=== PATIENT | female | born 1995 | race Caucasian/White ===

== ENCOUNTER → 2021-08-26 14:13 | Outpatient (CLI) | payer OTHER, SELFPAY ==
--- NOTE | 2021-08-26 14:15 | DI.US.S_ITS ---
PROCEDURE: US OB >= 14 WEEKS FETUS INDICATIONS: 7 cm cyst on uterus f/u and anatomy screen OUTSIDE/PRIOR DATING DATA: Last menstrual period (LMP): 04/08/2021 LMP-based estimated date of delivery (DANNIE): 01/13/2022. First dating scan (date and location): 07/19/2021. Estimated date of delivery (DANNIE) from first dating scan: 01/07/2032. The calculations are made using the ultrasound DANNIE of 01/07/2032. TECHNIQUE: Real-time scanning was performed of the fetus, with image documentation and biometric measurements. Endovaginal scanning: No COMPARISON: [facility], US, US OB GROWTH + TRANSVAG, 07/19/2021, 10:50. FINDINGS: General: A single living intrauterine gestation is present. Presentation: Variable. Placenta: Placental position is anterior left lateral , without previa. Amniotic fluid index: 15.4 cm, normal range is 5-24 cm. heart rate: 144 beats per minute. Maternal cervical canal: 5.5 cm long. Normal lower limit is 2.5 cm. Report any funneling of internal cervical os: % of canal length, shape (U or V), width or any U-shaped funneling. biometrics: Biparietal diameter: 21 weeks 2 days Head circumference: 21 weeks 0 days Abdominal circumference: 21 weeks 0 days Femur length: 21 weeks 6 days Clinically estimated gestational age: 21 weeks 0 days Composite gestational age from present scan: 21 weeks 2 days Estimated weight and percentile: 416 g; 63rd percentile. Anatomic survey: Neuro: Ventricles are non-dilated at less than 10 mm. Cisterna magna is normal at 3-11 mm. Cerebellum is normal in size and morphology. Nuchal skin fold: Normal at less than 6 mm between 14-21 weeks gestational age. Face: Nose and lips, facial profile are normal. Spine: No evidence for spina bifida. Heart: 4-chambered heart is present, with normal ventricular outflow tracts. Diaphragm: Diaphragm is intact. Stomach: Left-sided stomach is present. Kidneys: No hydronephrosis. Normal is less than 5 mm in 2nd trimester, less than 7 mm in 3rd trimester. Cord: 3-vessel cord has orthotopic insertion. Placental cord insertion site not well seen. Bladder: Normal in size. Extremities: All 4 extremities identified. Maternal left complex ovarian cyst containing fine low level internal echoes appears similar to prior examination measuring up to 7.1 cm. IMPRESSION: 1. Single living IUP redemonstrated and interval growth is normal. 2. Placental cord insertion site not well seen; otherwise normal anatomic survey. 3. No significant change in maternal complex left ovarian cyst which has appearance suggesting possible endometrioma measuring up to 7.1 cm. Continued sonographic surveillance is warranted. Of note, given the size, patient is at increased risk for spontaneous torsion. We strive to produce accurate, complete, and clear reports of imaging services. To assist us in improving patient care, this report was composed using standard report templates and voice recognition software. Therefore, it may contain abnormal punctuation, insertions and/or omissions. Occasional wrong-word or sound-alike substitutions may occur. Though we review the report and make efforts to correct it, we do recommend that the report be read carefully in proper context to recognize any text inaccuracies. Dictated by: Remigio DASH Interpreted: Zaki Sanchez MD on 08/26/2021 at 15:58 Transcribed by: CHERELLE on 08/26/2021 at 16:03 Approved by: Zaki Sanchez M.D. on 08/26/2021 at 16:43
== END ==
PROVIDERS: PCP Family Medicine; Referring Provider Family Medicine; Visit Provider Family Medicine
DX: Z36.2 Encounter for other antenatal screening follow-up (principal); O34.82 Maternal care for other abnormalities of pelvic organs, second trimester; N83.292 Other ovarian cyst, left side; Z3A.21 21 weeks gestation of pregnancy
CPT/HCPCS: 76811

== ENCOUNTER → 2021-10-11 11:39 | Outpatient (CLI) | payer OTHER, SELFPAY ==
[2021-10-11 14:09] LABS: Hematocrit 29.2 % (36-46); Hemoglobin 9.8 g/dL (12.0-16.0)
[2021-10-11 14:32] LABS: GTT (PREG) 1 Hour PP 50gm Dose 108 mg/dL (76-139)
== END ==
PROVIDERS: PCP Family Medicine; Referring Provider Family Medicine; Visit Provider Family Medicine
DX: Z34.92 Encounter for supervision of normal pregnancy, unspecified, second trimester (principal); Z3A.26 26 weeks gestation of pregnancy
CPT/HCPCS: 36415; 82950; 85014; 85018

== ENCOUNTER → 2021-12-17 15:03 | Outpatient (CLI) | payer OTHER, SELFPAY ==
[2021-12-18 13:45] LABS: Strep Grp B PCR NEG for Grp B Strep
== END ==
PROVIDERS: PCP Family Medicine; Visit Provider Obstetrics & Gynecology
DX: Z34.03 Encounter for supervision of normal first pregnancy, third trimester (principal); Z3A.36 36 weeks gestation of pregnancy
CPT/HCPCS: 87653

== ENCOUNTER 2022-01-12 19:02 | Inpatient (IN) | payer OTHER, SELFPAY ==
[2022-01-12 20:16] LABS: Add Manual Diff / Slide Review NO; Basophils Absolute Auto 0 /uL (0-100); Basophils Percent Auto 0.5 % (0-2); Eosinophils Absolute Auto 100 /uL (0-450); Eosinophils Percent Auto 0.9 % (2-4); Hematocrit 31.2 % (36-46); Hemoglobin 10.6 g/dL (12.0-16.0); Lymphocytes Absolute Auto 1600 /uL (1100-4500); Lymphocytes Percent Auto 18.9 % (25-40); Mean Corpuscular HGB Conc 34.1 % (30-36); Mean Corpuscular Hemoglobin 31.1 PG (26-34); Monocytes Absolute Auto 900 /uL (0-900); Monocytes Percent Auto 10.5 % (3-14); Neutrophils Absolute Auto 5800 /uL (1500-7000); Neutrophils Percent Auto 69.2 % (50-75); Platelet Count 230 X10^3/uL (150-400); Red Blood Cell Count 3.43 X10^6/uL (4.0-5.2); Red Cell Distribution Width 16.4 % (11.6-14.8); White Blood Cell Count 8.3 X10^3/uL (4.5-11.0)
[2022-01-12] MEDS: DINOPROSTONE VAG (CERVIDIL) 10 MG VAG (20:20)
[2022-01-12 20:52] LABS: COVID19 -Nasal RAPID Negative (Negative)
[2022-01-12] MEDS: CALCIUM CARBONATE 500 MG TAB 1000 MG PO (21:59)
--- NOTE | 2022-01-13 08:10 | PM.OBHP.IH.1 ---
OB HPI Date/Time Date of admission: 01/13/22 Date Patient Seen: 01/13/22 Time Patient Seen: 08:10 History of Present Condition Chief complaint: Induction DANNIE Calculator Estimated Delivery Date Method Current WG Current Estimate 01/13/22 LMP (Uncertain) 40w 0d Estimated Gestational Age (weeks): 40 : 1 Para: 0 Narrative: 26-year-old at 40 weeks gestation here for induction due to a large, painful left ovarian cyst versus endometrioma. She was seen earlier this week at [facility] due to severe pain. Ultrasound at that time showed a 9.5 x 9.6 x 3.8 cm structure in the left adnexa. Estimated weight was also with the fourth percentile. We had discussed continued expectant management versus induction labor and she wished proceed induction of labor. The case was also reviewed with Dr. mSith regarding mode of delivery given the adnexal mass. She recommended a trial of labor rather than primary section. Should she undergo a , the mass would be removed at that time. has otherwise been uncomplicated. Her stepson was born with a heart defect. echo this was normal. care: good care, initiated at week # (12), number of visits (12) and pounds weight gain (47) Dating criteria OB: LMP confirmed by 1st trimester US Ultrasounds: normal 1st trimester US and normal mid trimester US Abnormal ultrasound findings: Ultrasounds normal with the exception of the left adnexal structure as above. Obstetrical complications: other (9 cm left endometrioma vs ovarian cyst) Medical complications OB: none Indications Indication for induction OB: other (left endometrioma vs ovarian cyst causing pain) Preadmission Labs Last OB Lab Results: Blood Type O Positive 01/12/22 20:04 Antibody Screen Negative 01/12/22 20:04 Hematocrit 31.2 % (36-46) L 01/12/22 20:05 Hemoglobin 10.6 g/dL (12.0-16.0) L 01/12/22 20:05 Glucose 1 Hour 108 mg/dL (76-139) 10/11/21 12:14 Group B Streptococcus (PCR) Neg for grp b strep 12/17/21 15:03 -: Urine: negative -: PAP smear: Normal External Labs -: Urine: negative Evaluation Evaluation Baseline heart rate: 130 Variability: Moderate (11-25) monitor accelerations: Present Monitor Decelerations: Absent Contraction Frequency (minutes): 6 Status: Category l Dilation (cm): 1 Effacement (%): 40 Dilation: 1-2 cm Effacement: 40-50% station: -2 Position of cervix: posterior Consistency: medium Montejo score: 4 PFSH Medical History Acne UTI (urinary tract infection) (~2020) Surgical History Anesthesia History of appendectomy (~2016) History of wisdom tooth extraction (~11/2020) Family History Mother Arthritis, rheumatoid Father Hypertension Grandmother Diabetes mellitus Heart disease Grandfather Dementia Grandfather Skin cancer Grandmother Cancer Social History marital status: number of children: 1 (step son with congential heart defect) household members: spouse, family and children lives independently: Yes housing: house (with parents for now) pets and animals: Yes (dogs, cats, horses) education level: college 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) current occupational exposures/hazards: No lilo/bahai: L[employer] Day seatbelt use: always water heater temp set < 120 deg: Yes working smoke detector in home: Yes fire extinguisher in home: Yes carbon monox detector in home: Yes firearms in home: Yes firearms unloaded and locked: Yes do you feel safe at home: Yes Smoking Status: Never smoker second hand exposure: No alcohol intake: former substance use type: does not use during the past year weight has: remained stable well-balanced diet: daily or most days daily servings fruits/ve-4 caffeine: Yes (200mg limit) Type(s) of exercise: walking Meds Home Medications and Allergies Home Medications Medication Instructions Recorded Confirmed Type docusate sodium 100 mg capsule 100 mg PO DAILY 08/18/21 12/24/21 History (Colace) prenat.vits,sharmila,[id number] 1 tab PO DAILY 08/18/21 12/24/21 History Allergies Allergy/AdvReac Type Severity Reaction Status Date / Time nitrofurantoin Allergy Intermediate Chest Pain Verified 12/24/21 14:28 OB Exam Narrative Exam Narrative: Temperature 35.9? blood pressure 109/65 heart rate 68 HENMT Head: normal to inspection Mouth: oral mucosae normal Eyes General: appearance normal, both eyes and all related structures Resp Effort & Inspection: normal respiratory effort Auscultation: clear to auscultation bilaterally Cardio Rate: regular rate Rhythm: regular rhythm Extremities Lower extremity: Yes edema (Trace bilateral) Presentation: vertex Estimated Weight (lbs): 9 Objective Labs Result Diagrams: 01/12/22 20:05 Labs: Laboratory Results - last 24 hr 01/12/22 01/12/22 01/12/22 19:50 20:04 20:05 WBC 8.3 RBC 3.43 L Hgb 10.6 L Hct 31.2 L MCV 91.0 MCH 31.1 MCHC 34.1 RDW 16.4 H Plt Count 230 Neut % (Auto) 69.2 Lymph % (Auto) 18.9 L Kaufman % (Auto) 10.5 Eos % (Auto) 0.9 L Baso % (Auto) 0.5 Neut # (Auto) 5800 Lymph # (Auto) 1600 Kaufman # (Auto) 900 Eos # (Auto) 100 Baso # (Auto) 0 SARS-CoV-2 (PCR) Negative Blood Type O Positive Antibody Screen Negative Assessment and Plan Assessment and Plan Assessment and Plan narrative: 26 year old 40 weeks gestation here induction due to a large, painful left endometrioma verses ovarian cyst. Received Cervidil overnight with changes in her cervix though Montejo score remains unfavorable this morning with a score of 4. Discussed further ripening with Cytotec verses Alejandra bulb. Will give 1 dose of Cytotec this morning and re-evaluate in 4 hours. She is GBS negative and COVID negative. If she has a vaginal delivery, plan will be for laparoscopic removal of the endometrioma or ovarian cyst after 6 weeks . Should she undergo section, it would be removed at that time.
[2022-01-13] MEDS: miSOPROStoL 25 MCG TABLET VAG (08:58)
[2022-01-13] MEDS: CALCIUM CARBONATE 500 MG TAB 1000 MG PO ×2 (12:09→17:37)
--- NOTE | 2022-01-13 12:59 | PM.OBPNLAB ---
Date/Time Date Patient Seen: 01/13/22 Time Patient Seen: 12:50 Pain Control Pain control: tolerating well Comments: She has felt the last couple contractions more since getting out of bed. Pelvic Exam Dilation (cm): 1 Effacement (%): 70 station: -2 Amniotic membrane status: Intact Contractions Contraction frequency (min): 4 Status status: Category l Heart Rate Baseline: 140 Monitor Accelerations: Present Monitor Decelerations: Absent Monitor Variability: Moderate Assessment and Plan Assessment: induction ongoing Comments: 26 year old at 40 weeks gestation here for induction due to a painful left adnexal benign appearing mass. S/p Cervidil and once dose of Cytotec, now patsy regularly and feeling contractions more. She is patsy too frequently for more Cytotec and has had some cervical change since this morning (Montejo score now 6). Will begin a trial of pitocin. Epidural upon request, sam ISBELL.
[2022-01-13] MEDS: LACTATED RINGERS 1,000 ML 100 ML IV (13:30)
[2022-01-13] MEDS: OXYTOCIN PREMIX 30 UNIT/500 ML PLAST..BAG IV (13:32)
[2022-01-13] MEDS: ONDANSETRON 4 MG/2 ML INJ IV ×2 (14:32→21:30)
[2022-01-13] MEDS: fentaNYL 100 MCG/2 ML INJ 50 MCG IV (15:31)
--- NOTE | 2022-01-13 17:29 | PM.OBPNLAB ---
Date/Time Date Patient Seen: 01/13/22 Time Patient Seen: 17:00 Pain Control Pain control: epidural Comments: Contractions became very intense shortly after pitocin. Now comfortable with epidural. Pelvic Exam Dilation (cm): 3 Effacement (%): 100 station: -2 Amniotic membrane status: Intact Contractions Pitocin rate (mU/min): 2 Contraction frequency (min): 2 Status status: Category l Heart Rate Baseline: 130 Monitor Accelerations: Present Monitor Decelerations: Absent Monitor Variability: Moderate Assessment and Plan Assessment: active labor Plan: continuous present management Comments: Progressing well with minimal pitocin, now comfortable with epidural. Continue pitocin and expectant management. Anticipate .
--- NOTE | 2022-01-13 20:46 | PM.OBPNLAB ---
Date/Time Date Patient Seen: 01/13/22 Time Patient Seen: 20:46 Pain Control Pain control: tolerating well and epidural Pelvic Exam Dilation (cm): 5 Effacement (%): 100 station: 0 Amniotic membrane status: Ruptured (AROM for clear fluid) Contractions Monitor mode: External Pitocin rate (mU/min): 2 Contraction frequency (min): 2 Status status: Category l Heart Rate Baseline: 130 Monitor Accelerations: Present Monitor Decelerations: Early Monitor Variability: Moderate Assessment and Plan Assessment: active labor Plan: continuous present management Comments: 26 year old at 40 weeks progressing well with minimal pitocin, now comfortable with epidural. AROM for clear fluid. Continue expectant management, anticipate .
[2022-01-13] MEDS: CALCIUM CARBONATE 500 MG TAB PO (21:10)
--- NOTE | 2022-01-14 | PM.OBPNLAB ---
Date/Time Date Patient Seen: 01/14/22 Time Patient Seen: 11:45 Pain Control Pain control: tolerating well Comments: Feeling rectal pressure. Pelvic Exam Dilation (cm): 10 Effacement (%): 100 station: +1 Amniotic membrane status: Ruptured (AROM for clear fluid) Contractions Monitor mode: External Pitocin rate (mU/min): 2 Contraction frequency (min): 2 Status status: Category l Heart Rate Baseline: 130 Monitor Accelerations: Present Monitor Decelerations: Absent Monitor Variability: Moderate Assessment and Plan Assessment: active labor Comments: Begin pushing.
[2022-01-14] MEDS: CALCIUM CARBONATE 500 MG TAB PO (01:25)
--- NOTE | 2022-01-14 03:19 | P.PCNOB_ITS ---
Labor & Delivery Delivery date: 01/14/22 Cervical ripening method: per Cervidil protocol Induction method: per pitocin protocol Delivery augmentation: rupture of membranes Delivery monitor: external FHT Route of delivery: L&D Laceration Description: Vaginal - 2nd Degree and Labial (Split right labia with bleeding) Delivery repair: chromic Estimated blood loss (mL): 700 Anesthesia Type: Epidural Narrative: Patient is a 38-year-old at 40 weeks and one day gestation who gave on 01/14/22 at 02:35. Hospital problems: 40 weeks of Spontaneous vaginal delivery Left endometrioma STAGE I: Labor Patient was admitted for induction the night of 01/12/22. She received Cervidil followed by 1 dose of Cytotec. She then received minimal Pitocin and transition into active labor. Labor began 01/13/22 at 1:50 p.m.. She went on to receive an epidural with excellent pain control. Artificial rupture of membranes was 01/13/22 at 8:43 p.m. with clear fluid. She was complete at 09/05/44. heart tones were category 1 throughout stage I. Stage I duration 9 hours 55 minutes. STAGE II: Delivery She pushed for 2 hours and 50 minutes and went on to deliver a vigorous female infant on 01/14/22 at 2:35 a.m.. was vertex and SHELIA. was immediately placed on mother's abdomen after . Cord was clamped and cut after approximately 1 minute delay. Apgars were 8 and 8. No resuscitation of the required. STAGE III: Placenta/Cord Placenta delivered at 2:42 a.m. after active management and appeared intact with a three-vessel cord. A piece of trailing membrane was also removed after fundal massage. Pitocin bolus given after delivery of the placenta. Patient sustained a split right labial laceration which was actively bleeding. There was also a second-degree vaginal laceration which was also bleeding. Fundus was firm throughout the repair but bleeding continued until the lacerations were closed. Hemostasis was assured. Repairs were performed in the usual fashion with 3-0 Vicryl. Complications: Hemorrhage from right labial laceration and vaginal laceration EBL: 700 mL. Needle and sponge counts were correct. The vagina was inspected and no items were left in situ. Patient was doing well with Gaye, her and and mother at bedside. [place] Baby 1: gender: Female Presentation: vertex Position: Right Occiput Anterior Placenta delivery description: Spontaneous Cord Vessel Description: 3 Vessels score (1 min): 8 score (5 min): 8 Plan for aftercare: Routine care
[2022-01-14] MEDS: IBUPROFEN 600 MG TABLET PO ×3 (05:34→20:00)
[2022-01-14] MEDS: DERMOPLAST SPRAY 20% 60 ML 1 SPRAY TOP (05:43)
[2022-01-14] MEDS: ACETAMINOPHEN 325 MG TABLET 650 MG PO ×3 (08:50→23:47)
[2022-01-14] MEDS: FERROUS SULFATE 325 MG TABLET PO (08:50)
[2022-01-14] MEDS: PRENATAL VIT,CALC/IRON/FOLIC 1 TABLET 1 TAB PO (08:51)
[2022-01-14] MEDS: DOCUSATE 100 MG CAPSULE PO (08:52)
--- NOTE | 2022-01-14 13:32 | P.PNOB_ITS ---
Subjective - OB Subjective Patient comments: pain well controlled and tolerating diet [place] baby status: doing well and nursing well [place] feeding status: exclusively breast feeding Date Patient Seen: 01/14/22 Time Patient Seen: 13:00 Interval history: Doing well this afternoon. Vaginal bleeding is as expected and pain well- controlled. Working on . She is a little dizzy when she first stands up but is able to ambulate to the bathroom. Has voided. Exam Vital Signs (past 8 hours): T 97.9? blood pressure 99/67 heart rate 93 respirations 18 Narrative Exam Narrative: General: Awake and alert, no acute distress. HEENT: NCAT, EOMI, moist oral mucosa CV: Regular rate and rhythm, no murmurs, rubs or gallops Lungs: CTAB, no wheezes, rales, or rhonchi Abdomen: Soft, nontender; bowel tones active; uterus firm 1 cm below umbilicus Extremities: Warm, trace edema Objective Labs Result Diagrams: 01/12/22 20:05 Assessment & Plan Assessment and Plan (1) 40 weeks gestation of : Status: Acute (2) Spontaneous vaginal delivery: Status: Acute (3) hemorrhage: Problem details: Secondary to lacerations Status: Acute Plan day: 0 plan OB: routine care Comments: 26 year old after complicated by hemorrhage due to lacerations. Vitals stable without tachycardia. She does have a little dizziness upon standing but is ambulating well. Continue care H/H in the morning Anticipate discharge home tomorrow Time Spent With Patient Time: Total time spent is greater than 50% in coordination of care (as documented) at patient's floor/unit and/or counseling patient: Time with patient: less than 15 minutes
[2022-01-15] MEDS: ACETAMINOPHEN 325 MG TABLET 650 MG PO (06:00)
[2022-01-15 07:21] LABS: Hematocrit 26.3 % (36-46); Hemoglobin 9.2 g/dL (12.0-16.0)
[2022-01-15] MEDS: IBUPROFEN 600 MG TABLET PO (08:27)
[2022-01-15] MEDS: FERROUS SULFATE 325 MG TABLET PO (08:28)
[2022-01-15] MEDS: DOCUSATE 100 MG CAPSULE PO (08:28)
[2022-01-15] MEDS: PRENATAL VIT,CALC/IRON/FOLIC 1 TABLET 1 TAB PO (08:28)
--- NOTE | 2022-01-15 08:47 | P.DS_ITS ---
Discharge Providers Provider Date of admission: 01/12/22 19:02 Discharge Date: 01/15/22 Primary care physician: Valerie Magallon MD Consults: 01/15/22 03:23 Consult to Ticket Chopper Assembler Routine Comment: Discharge provider: Nayana Sorenson DO Summary Hospital Course Date Patient Seen: 01/15/22 Time Patient Seen: 09:15 Diagnoses: 40 weeks of Spontaneous vaginal delivery Left endometrioma versus ovarian cyst Hospital Course: This is a 26-year-old G1 now P1 after uncomplicated vaginal delivery at 40 weeks and 1 day. She was brought in for induction due to pain secondary to a left adnexal mass felt to be an ovarian cyst versus endometrioma. She received Cervidil, 1 dose of Cytotec then Pitocin. She went on to receive an epidural and deliver a vigorous female infant. Delivery was complicated by bleeding labial and vaginal lacerations which were repaired with good hemostasis. Estimated blood loss was 700 mL. course uncomplicated. She was ambulating, voiding and passing flatus. Vaginal bleeding was moderate as expected. Pain controlled with ibuprofen. Breast-feeding going well without issues in the . Admission H&H was 10.6 and 31.2. Follow-up H&H was 9.2 and 26.3, suggesting that she did not lose as much blood from the lacerations as estimated. Patient was advised to call for fevers, severe pain or bleeding through more than a pad an hour. Follow-up in 6 weeks or sooner if needed. Peripartum Data Delivery Method: Natural Vaginal Laceration Description: Vaginal - 2nd Degree and Labial (Right) complications: none 1: Gender: Female Disposition of : home Discharge Diagnosis (1) 40 weeks gestation of : Status: Acute (2) Spontaneous vaginal delivery: Status: Acute (3) hemorrhage: Status: Acute Problem Details: Secondary to lacerations Time Spent with Patient Time attestation: Total time spent providing and/or coordinating discharge services: Time spent: Less than 30 minutes Objective Labs Result Diagrams: 01/15/22 06:35 Labs: Laboratory Results - last 24 hr 01/15/22 06:35 Hgb 9.2 L Hct 26.3 L Exam Vital Signs (past 8 hours): Temperature 97.9? blood pressure 98/65 heart rate 74 P 16 Narrative Exam Narrative: General: Awake and alert, no acute distress. HEENT: NCAT, EOMI, moist oral mucosa CV: Regular rate and rhythm, no murmurs, rubs or gallops Lungs: CTAB, no wheezes, rales, or rhonchi Abdomen: Soft, nontender; bowel tones active; uterus firm 1 cm below umbilicus Extremities: Warm, no edema, 2+ pedal pulses bilaterally Discharge Plan Discharge Plan Patient Disposition: Home Provider Discharge Comment: Please call for fevers, severe pain or bleeding through more than a pad an hour Discharge orders & Medications Prescriptions: New ferrous sulfate 325 mg (65 mg iron) Tablet 325 mg PO DAILY Qty: 30 0RF docusate sodium 100 mg Capsule 100 mg PO DAILY Qty: 30 0RF ibuprofen 600 mg Tablet 600 mg PO Q6HR PRN (Reason: Pain, Mild (1-3)) Qty: 30 0RF Dermoplast (with menthol) 20-0.5 % Aerosol 1 spray topical Q1HR PRN (Reason: perineal pain) Qty: 56 0RF acetaminophen 325 mg Tablet 650 mg PO Q6HR PRN (Reason: Pain, Mild (1-3)) Qty: 30 0RF Continued prenat.vits,sharmila,[id number] Tablet 1 tab PO DAILY docusate sodium [Colace] 100 mg capsule 100 mg PO DAILY Follow up/Referrals: Valerie Magallon MD [Primary Care Provider] - Nayana Sorenson DO [Physician] - 6 Weeks (The clinic will call to schedule a 6 week visit) Visit Report/Discharge Packet Instructions: DI for Labor and Delivery, Vaginal Visit Report Forms: Patient Portal/API, Stroke Signs & Symptoms Discharge Data Primary Care Provider: Valerie Magallon
[2022-01-15 11:04] VITALS: BP 112/64; PULSE 76; RESP 18; TEMP 36.6
== END 2022-01-15 11:18 | disposition home or self-care (01) | DRG 806 ==
PROVIDERS: Admitting Provider Family Medicine; PCP Family Medicine; Referring Provider Family Medicine; Visit Provider Family Medicine
DX: O99.892 Other specified diseases and conditions complicating childbirth (principal); D62 Acute posthemorrhagic anemia; Z37.0 Single live birth; Z3A.40 40 weeks gestation of pregnancy; N80.1 Endometriosis of ovary; Z20.822 Contact with and (suspected) exposure to COVID-19; O70.1 Second degree perineal laceration during delivery; O70.0 First degree perineal laceration during delivery
CPT/HCPCS: 01967; 36415; 59050; 59200; 59410; 85014; 85018; 85025; 86850; 86900; 86901; 87635; C9803; G0379; J2405; J2590; J3010

== ENCOUNTER 2022-05-30 09:52 | Day surgery (SDC) | payer OTHER, SELFPAY ==
[2022-05-26 15:17] VITALS: BMI 22.6
[2022-05-30] VITALS (8 sets, daily range): BP systolic 106–120; BP diastolic 70–79; PULSE 70–85; RESP 12–18; TEMP 36.9–37.3; O2SAT 95–99; BMI 23.3
--- NOTE | 2022-05-30 | PATH_ITS ---
[facility] Accession Number: [id number] . 01 Material submitted: . ovary - LEFT OVARIAN ENDOMETRIOMA . 01 Diagnosis: Left Ovary, Excision: Benign endometriotic-type cyst of ovary/endometrioma, see microscopic description. Negative for atypia or malignancy. MRV 06/06/2022 1627 Local . 01 Comment: This case is also reviewed by PUD[employer] HELPER pathologist, Dr. Fior Hoffman, who agrees with the interpretation. . 01 Electronically signed: . Drea Nemwan MD, Pathologist NPI- [id number] . 01 Gross description: . The specimen is received in formalin labeled with the patient's name, , and left ovarian endometrioma, and consists of a smith to congested smooth soft tissue fragment weighing 17 grams and measuring 4.8 x 3.7 x 2.4 cm. The roughened area consistent with margin is inked black, and sectioning reveals a smooth thin-walled cystic structure measuring 4.5 cm in greatest dimension filled with thick brown semi-solid material. No papillary excrescences or normal ovarian parenchyma are grossly identified. Utility Lineman sections are submitted in cassettes A1-A4. ([id number]) /MRV 06/01/2022 0214 Local . 01 Microscopic: . Microscopic examination reveals a hemorrhagic cyst lined by predominantly hemosiderin-laden macrophages, focal endometrial-type glands and stroma, highlighted by CD10 immunostain. There is no significant cytologic atypia, architectural complexity or malignancy. . The histologic findings support the diagnosis of ovarian endometrioma/ endometriotic-type cyst. . * This test was developed and its performance characteristics determined by [facility]. It has not been cleared or approved by the U.S. Food and Drug Administration. The FDA has determined that such clearance or approval is not necessary. This test is used for clinical purposes. It should not be regarded as investigational or for research. . 01 Pathologist provided ICD-10: N80.101, N80.129 . 01 CPT . 167655, Q84765 Performed at: 01 [facility] [address] [place] [address], [place], [place] [id number] MD Nando Stern MD Phone: [phone]
[2022-05-30] MEDS: LACTATED RINGERS 1,000 ML 100 ML IV (10:29)
[2022-05-30 10:45] LABS: COVID19 -Nasal RAPID Negative (Negative)
--- NOTE | 2022-05-30 12:07 | PM.HP.1 ---
History of Present Illness History of Present Illness Date Patient Seen: 05/30/22 Time Patient Seen: 12:07 Chief complaint: SDC Narrative: Patient is a 26-year-old 1 para 1 with a right ovarian endometrioma. She presents for a laparoscopic removal of the endometrioma. Patient History Medical History Acne hemorrhage Spontaneous vaginal delivery (~01/14/22) UTI (urinary tract infection) (~2020) Surgical History Anesthesia History of appendectomy (~2016) History of wisdom tooth extraction (~11/2020) Family & Social History Family History Mother Arthritis, rheumatoid Father Hypertension Grandmother Diabetes mellitus Heart disease Grandfather Dementia Grandfather Skin cancer Grandmother Cancer Social History: household members spouse,family,children lives independently Yes Tobacco & Substance use: Smoking Status Never smoker alcohol intake current alcohol intake frequency holiday/special occasion Substance Use Type does not use Meds Home Medications and Allergies Home Medications Medication Instructions Recorded Confirmed Type cephalexin 250 mg capsule 250 mg PO PRN PRN Abdominal Pain 05/30/22 05/30/22 History Allergies Allergy/AdvReac Type Severity Reaction Status Date / Time nitrofurantoin Allergy Intermediate Chest Pain Verified 05/30/22 10:15 Exam Vital Signs (past 8 hours): - 05/30/22 10:19 Temperature 98.4 F Pulse Rate 72 Respiratory Rate 16 Blood Pressure 107/70 Pulse Oximetry 99 Oxygen Delivery Method Room Air Oxygen Delivery Method Room Air Narrative Exam Narrative: HEENT: No thyromegaly, no anterior cervical or supraclavicular lymphadenopathy. Lungs:Clear to auscultation bilaterally, no wheezes. Cardiovascular: Regular rate and rhythm, no murmurs, rubs, or gallops. Abdomen: Well-healed scars. No hepatosplenomegaly. No masses palpable. External genitalia: Normal Vagina: Normal Cervix: Normal Bimanual exam: 7 Week size uterus. Mobile. Right adnexal fullness. Extremities: No edema Objective Labs Labs: Laboratory Results - last 24 hr 05/30/22 10:06 SARS-CoV-2 (PCR) Negative Assessment & Plan Assessment & Plan narrative: Assessment: 26-year-old 1 para 1 with a right ovarian endometrioma Plan: Laparoscopic removal of endometrioma, possible fulguration of endometriosis. The risks, benefits, alternatives to the procedure were explained to the patient. The risks including bleeding, infection, injury to the bowel, bladder, or ureters. She understands all of these risks and agrees to proceed. A full par Q was held and consent form was signed. COVID-19 COVID-19 status: Negative Result date/Date tested (Pos, Neg/Pending): 05/30/22 Time Spent With Patient Time with patient: less than 30 minutes Critical Care time: I spent a total of [] minutes of critical care time on this patient's care today; this time is exclusive of procedural time.
--- NOTE | 2022-05-30 12:09 | PM.PREOP ---
Pre-operative Note COVID-19 COVID-19 status: Negative Result date/Date tested (Pos, Neg/Pending): 05/30/22 Criteria for continued procedure: Non-surgical alternatives not available or appropriate per current SOC Interval Note History & Physical reviewed/Exam performed by Physician: Yes Changes to H&P: No H&P completed within 30 days and has changed as indicated here:: 05/30/22
--- NOTE | 2022-05-30 12:37 | SUR.OPER ---
Lithotomy on padded OR bed, head on pillow, arms wrapped in gel pads and tucked against sides, fingers straight and protected. Legs secured in padded yellow fins stirrups.
[2022-05-30] MEDS: BUPIVACAINE 0.5% (PF) 30 ML, EPINEPHrine 0.15 MG INJ (12:48)
--- NOTE | 2022-05-30 13:31 | P.OP_ITS ---
Operative Date/Time/Diagnoses Date of procedure: 05/30/22 Time of procedure: 13:31 Pre-op diagnosis: Right ovarian endometrioma Post-op diagnosis: other (Left ovarian endometrioma) Procedure & Clinicians Procedure: Procedures Operation Date: 05/30/22 11:15 Actual Procedure Side Surgeon p Laparoscopic Removal of Endometriosis Jenni Smith MD Indications: Right ovarian endometrioma Surgeon: Jenni Smith Anesthesia Type: General and Local Operative Notes Findings: Approximately 200 endometriotic lesions in the anterior, posterior cul-de-sac, anterior uterus, and pelvic sidewalls Normal gallbladder and liver Appendix previously removed Normal tubes Normal right ovary 5 cm left ovarian endometrioma Closure Type: primary Specimen(s): other (Cyst from right ovary) Estimated blood loss (mL): 5 Blood products transfused: none Procedure in detail: After informed consent was obtained, the patient was taken to the operating room where she was placed in the dorsal supine position. After adequate general endotracheal anesthesia was achieved, she was placed in the dorsal lithotomy position, and prepped and draped in the usual sterile fashion. A time-out was performed. A bivalve speculum was placed into the vagina and the anterior lip of the cervix was grasped with a single-tooth tenaculum. Cervical os was sequentially dilated until the Zumi uterine manipulator could pass easily into the endometrial cavity. The single-tooth tenaculum was removed from the anterior lip of the cervix. The bivalve speculum was removed from the vagina. Attention was then turned to the abdomen where 6 cc of 0.5% Marcaine with epinephrine were injected in the umbilical fold. A 5 mm incision was made. Veress needle was placed into the peritoneal cavity, and its placement confirmed by aspiration and drop test. The abdominal cavity was insufflated with 3.0 L of CO2. The Veress needle was removed, and a 5 mm trocar was placed without difficulty. Two other incisions were made 4 cm lateral to the midline at the level of the umbilicus after 6 cc of 0.5% Marcaine with epinephrine were injected, and two 5 mm trocars were placed under direct visualization. The pelvis and abdomen were examined with the findings noted above. The cyst on the right ovary was grasped with an atraumatic grasper. Using the power seal, the cyst was excised using cautery and cut. This was placed and the anterior cul-de-sac. This was repeated on the left ovary for the left cyst. This was also placed into the anterior cul-de-sac. 6 cc of 0.5% Marcaine with epinephrine were injected above the pubic symphysis. A 12 mm incision was made. A 12 mm trocar was placed under direct visualization. A small endobag was placed into the pelvis through the suprapubic trocar. Both cysts were placed into the bag. The trocar was removed and the bag was pulled up through the incision. The fascia on the suprapubic incision was closed with 0 Vicryl in a running fashion. Using the spoon cautery, proximally 100+ endometriosis lesions were cauterized in the anterior and posterior cul-de-sac, on the uterus, and on the pelvic sidewalls, with care to avoid the ureters. The pelvis was copiously irrigated with warm normal saline. There was no bleeding noted. The instruments were removed from the abdomen. The CO2 was allowed to escape. The incisions were repaired with 4-0 Monocryl in a subcuticular fashion. Steri- Strips and Allevyn dressings were placed. The Zumi uterine manipulator was removed from the uterus. Sponge, lap, and instrument counts were correct x2. The patient tolerated the procedure well, and was taken to PACU in stable condition. Complications: none Post-operative Condition: stable Disposition: PACU Plan for aftercare: Home after recovery
[2022-05-30] MEDS: ACETAMINOPHEN 325 MG TABLET 975 MG PO (14:29)
--- NOTE | 2022-05-30 15:05 | SUR.PHASEII ---
1445 Pt with some vaginal bleeding when getting up to get dressed. less than 1/4 of pad and no further bleeding. Steady on feet. Denied nausea, dizziness or significant pain.
== END 2022-05-30 14:55 | disposition home or self-care (01) ==
PROVIDERS: PCP Family Medicine; Referring Provider Obstetrics & Gynecology; Visit Provider Obstetrics & Gynecology
PROC: 0U5B4ZZ Destruction of Endometrium, Percutaneous Endoscopic Approach (ICD-10-PCS; CPT 58662; principal; 2022-05-30 11:15)
DX: N80.102 Endometriosis of left ovary, unspecified depth (principal); N80.101 Endometriosis of right ovary, unspecified depth; N80.329 Endometriosis of the posterior cul-de-sac, unspecified depth; N80.00 Endometriosis of the uterus, unspecified; N80.319 Endometriosis of the anterior cul-de-sac, unspecified depth; N80.399 Endometriosis of the pelvic peritoneum, other specified sites, unspecified depth; Z20.822 Contact with and (suspected) exposure to COVID-19
CPT/HCPCS: 58662; 81025; 87635; J0171; J1100; J1170; J1885; J2405; J2704; J3010

== ENCOUNTER → 2022-11-16 10:32 | Outpatient (CLI) | payer OTHER, SELFPAY ==
[2022-11-16 11:35] LABS: Add Manual Diff / Slide Review NO; Basophils Absolute Auto 0 /uL (0-100); Basophils Percent Auto 0.6 % (0-2); Eosinophils Absolute Auto 100 /uL (0-450); Eosinophils Percent Auto 2.2 % (2-4); Hematocrit 39.3 % (36-46); Hemoglobin 13.4 g/dL (12.0-16.0); Lymphocytes Absolute Auto 1500 /uL (1100-4500); Mean Corpuscular HGB Conc 34.1 % (30-36); Mean Corpuscular Hemoglobin 30.9 PG (26-34); Mean Corpuscular Volume 90.8 fL (80-100); Monocytes Absolute Auto 300 /uL (0-900); Monocytes Percent Auto 6.9 % (3-14); Neutrophils Absolute Auto 2900 /uL (1500-7000); Neutrophils Percent Auto 59.3 % (50-75); Platelet Count 224 X10^3/uL (150-400); Red Blood Cell Count 4.33 X10^6/uL (4.0-5.2); Red Cell Distribution Width 13.7 % (11.6-14.8)
[2022-11-16 12:21] LABS: Erythrocyte Sedimentation Rate 8 MM/HR (0-20)
[2022-11-16 12:30] LABS: Alanine Aminotransferase 19 IU/L (<35); Albumin 4.3 g/dL (3.5-5.0); Albumin Globulin Ratio 1.4 (1.0-2.8); Alkaline Phosphatase 64 U/L (38-126); Aspartate Aminotransferase 20 IU/L (14-36); BUN Creatinine Ratio 16.2 (6-22); Bilirubin Total 0.7 mg/dL (0.2-1.3); Blood Urea Nitrogen 12 mg/dL (7-17); Calcium 8.9 mg/dL (8.4-10.2); Carbon Dioxide 28 mmol/L (22-32); Chloride 103 mmol/L (98-107); Cholesterol 190 mg/dL (140-199); Estimated Glomerular Filt Rate > 60 mL/min (>60); Glucose 82 mg/dL (70-100); HDL Cholesterol 64 mg/dL (40-60); HEMOLYSIS < 15 (0-50); LDL Cholesterol Calculated 115 mg/dL (<100); Potassium 4.4 mmol/L (3.4-5.1); Sodium 137 mmol/L (137-145); Total Protein 7.3 g/dL (6.3-8.2); Triglycerides 55 mg/dL (35-150)
[2022-11-16 12:34] LABS: Rheumatoid Factor < 8.6 IU/mL (<12.0)
[2022-11-17 18:42] LABS: CCP Antibodies IgG/IgA 5 units (0-19)
[2022-11-24 12:14] LABS: ANA Screen, IFA Negative (.)
== END ==
PROVIDERS: PCP Family Medicine; Referring Provider Family Medicine; Visit Provider Family Medicine
DX: Z82.61 Family history of arthritis (principal); N80.9 Endometriosis, unspecified; Z00.00 Encounter for general adult medical examination without abnormal findings
CPT/HCPCS: 36415; 80053; 80061; 85025; 85651; 86038; 86200; 86430

== ENCOUNTER → 2023-02-06 14:07 | Outpatient (CLI) | payer OTHER, SELFPAY ==
[2023-02-06 21:43] LABS: Urine N gonorrhoeae NOT DETECTED
[2023-02-06 21:52] LABS: Urine Chlamydia NOT DETECTED
== END ==
PROVIDERS: PCP Family Medicine; Visit Provider Obstetrics & Gynecology
DX: Z34.81 Encounter for supervision of other normal pregnancy, first trimester (principal)
CPT/HCPCS: 87491; 87591

== ENCOUNTER → 2023-02-06 14:19 | Outpatient (CLI) | payer OTHER, SELFPAY ==
[2023-02-06 14:36] LABS: Add Manual Diff / Slide Review NO; Basophils Absolute Auto 100 /uL (0-100); Basophils Percent Auto 0.6 % (0-2); Eosinophils Absolute Auto 100 /uL (0-450); Eosinophils Percent Auto 1.1 % (2-4); Hematocrit 35.5 % (36-46); Hemoglobin 12.5 g/dL (12.0-16.0); Lymphocytes Absolute Auto 1800 /uL (1100-4500); Lymphocytes Percent Auto 19.7 % (25-40); Mean Corpuscular HGB Conc 35.3 % (30-36); Mean Corpuscular Hemoglobin 32.3 PG (26-34); Mean Corpuscular Volume 91.7 fL (80-100); Monocytes Absolute Auto 700 /uL (0-900); Neutrophils Absolute Auto 6500 /uL (1500-7000); Neutrophils Percent Auto 70.6 % (50-75); Platelet Count 243 X10^3/uL (150-400); Red Blood Cell Count 3.87 X10^6/uL (4.0-5.2); Red Cell Distribution Width 12.8 % (11.6-14.8); White Blood Cell Count 9.2 X10^3/uL (4.5-11.0)
[2023-02-06 15:51] LABS: Hepatitis B Surface Antigen NEGATIVE s/c (NEGATIVE)
[2023-02-06 15:52] LABS: Rubella Antibody IgG 21.9 IU/mL (>15)
[2023-02-06 16:25] LABS: HIV 1 & 2 Ab/Ag 4th Gen Combo NEGATIVE (NEGATIVE); Hep C Virus Ab w/Reflex Quant NEGATIVE s/c (NEGATIVE)
[2023-02-07 06:27] LABS: RPR Screen Non Reactive (Non Reactive)
[2023-02-07 12:36] LABS: Varicella IgG Antibody 621 index (Immune >165)
== END ==
PROVIDERS: PCP Family Medicine; Referring Provider Obstetrics & Gynecology; Visit Provider Obstetrics & Gynecology
DX: Z34.81 Encounter for supervision of other normal pregnancy, first trimester (principal)
CPT/HCPCS: 36415; 80055; 86787; 86803; 86850; 86900; 86901; 87389; 87491; 87591

== ENCOUNTER → 2023-04-05 16:14 | Outpatient (CLI) | payer OTHER, SELFPAY ==
--- NOTE | 2023-04-05 16:20 | DI.US.S_ITS ---
PROCEDURE: US OB >= 14 WEEKS FETUS INDICATIONS: ANATOMY OUTSIDE/PRIOR DATING DATA: Last menstrual period (LMP): 11/14/2022. LMP-based estimated date of delivery (DANNIE): 08/21/2023. First dating scan (date and location): 02/06/2023. Estimated date of delivery (DANNIE) from first dating scan: 08/26/2023. The calculations are made using the clinical DANNIE of 08/21/2023. TECHNIQUE: Real-time scanning was performed of the fetus, with image documentation and biometric measurements. Endovaginal scanning: None COMPARISON: [facility], OB >= 14 WEEKS FETUS, 08/26/2021, 14:28. FINDINGS: General: A single living intrauterine gestation is present. Presentation: Breech. Placenta: Placental position is posterior , without previa. Amniotic fluid index: 10.2 cm, normal range is 5-24 cm. Single deepest vertical pocket is 3.0 cm. heart rate: 150 beats per minute. Maternal cervical canal: 4.3 cm long. Normal lower limit is 2.5 cm. biometrics: Biparietal diameter: 4.3 cm, 19 week 0 day Head circumference: 16.4 cm, 19 week 1 day Abdominal circumference: 13.8 cm, 19 week 2 day Femur length: 3.0 cm, 19 week 2 day Clinically estimated gestational age: 20 week 2 day Composite gestational age from present scan: 19 week 1 day Estimated weight and percentile: 282 g, 6 percentile Anatomic survey: Neuro: Ventricles are non-dilated at less than 10 mm. Cisterna magna is normal at 3-11 mm. Cerebellum is normal in size and morphology. Nuchal skin fold: Normal at less than 6 mm between 14-21 weeks gestational age. Face: Nose and lips, facial profile are normal. Spine: No evidence for spina bifida. Heart: 4-chambered heart is present, with normal ventricular outflow tracts. Diaphragm: Diaphragm is intact. Stomach: Left-sided stomach is present. Kidneys: No hydronephrosis. Normal is less than 5 mm in 2nd trimester, less than 7 mm in 3rd trimester. Cord: 3-vessel cord has orthotopic insertion. Bladder: Normal in size. Extremities: All 4 extremities identified. IMPRESSION: Single live intrauterine consistent with 19 week 1 day by ultrasound and 20 week 2 day by dates, an 8 day discrepancy. Normal anatomic survey Approved by: Yoandy Polanco M.D. on 04/06/2023 at 15:18
== END ==
PROVIDERS: PCP Family Medicine; Referring Provider Obstetrics & Gynecology; Visit Provider Obstetrics & Gynecology
DX: Z34.82 Encounter for supervision of other normal pregnancy, second trimester (principal); Z3A.20 20 weeks gestation of pregnancy
CPT/HCPCS: 76811

== ENCOUNTER → 2023-05-15 14:52 | Outpatient (CLI) | payer OTHER, SELFPAY ==
[2023-05-15 16:42] LABS: Hematocrit 33.7 % (36-46); Hemoglobin 11.8 g/dL (12.0-16.0)
[2023-05-15 17:00] LABS: GTT (PREG) 1 Hour PP 50gm Dose 92 mg/dL (76-139)
== END ==
PROVIDERS: PCP Family Medicine; Referring Provider Obstetrics & Gynecology; Visit Provider Obstetrics & Gynecology
DX: Z34.82 Encounter for supervision of other normal pregnancy, second trimester (principal); Z3A.26 26 weeks gestation of pregnancy
CPT/HCPCS: 36415; 82950; 85014; 85018

== ENCOUNTER 2023-05-27 16:48 | Observation (INO) | payer OTHER, SELFPAY ==
--- NOTE | 2023-05-27 18:20 | PM.OBHP.1 ---
OB HPI Date/Time Date of admission: 05/27/23 Date Patient Seen: 05/27/23 Time Patient Seen: 18:20 History of Present Condition Chief complaint: OB : 2 Para: 1 Estimated Date of Delivery: 08/21/23 Estimated Gestational Age (weeks): 28w 0d Narrative: Dee Sanchez is a 27 year old female with an EDC of 21 August 2023. Chief complaint constipation. Patient states that she is only had 1 bowel motion in the last 15 days this was after Thanksgiving. She was started on iron as well as vitamin-C for anemia. She is been unable to poop. She is been straining all day today is complaining of lower abdominal pain. She has difficulty sitting and walking. She does have difficulty with having stools every other day when not . She denies any cramping she notes good motion. Accompanying of constipation just has some difficulty voiding. History of Present care: good care, initiated at week # (Twelve weeks) and number of visits (4 visits) Dating criteria: LMP confirmed by 1st trimester US Ultrasounds: normal 1st trimester US and normal mid trimester US Obstetrical complications: none [facility] Medical History (Updated 01/24/23 @ 13:09 by Rafia Hope RN) Mastitis Family history of rheumatoid arthritis Endometrioma hemorrhage Spontaneous vaginal delivery (~01/14/22) Ovarian cyst (~06/2021) UTI (urinary tract infection) (~2020) Acne Surgical History (Updated 01/24/23 @ 13:09 by Rafia Hope RN) History of laparotomy Anesthesia History of wisdom tooth extraction (~11/2020) History of appendectomy (~2016) Family History (Updated 01/24/23 @ 13:12 by Rafia Hope RN) Mother Arthritis, rheumatoid Father Hypertension Heart disease History of coronary artery stent placement Grandmother Diabetes mellitus Heart disease Grandfather Dementia Grandfather Skin cancer Grandmother Cancer Leukemia Social History marital status: number of children: 1 (step son during [place]) household members: spouse and children lives independently: Yes caregiver/support person: Yes housing: house pets and animals: Yes (dogs) education level: college (bachelor's degree) occupational status: unemployed current occupational exposures/hazards: No lilo/hoahaoism: Zoroastrian special lilo needs: No travel history: recent ([place]; had traveler's diarrhea while there) seatbelt use: always helmet use: Yes water heater temp set < 120 deg: Yes working smoke detector in home: Yes fire extinguisher in home: Yes carbon monox detector in home: Yes firearms in home: Yes firearms unloaded and locked: Yes do you feel safe at home: Yes Smoking Status: Never smoker second hand exposure: No alcohol intake: former (rarely when not ) substance use type: does not use during the past year weight has: other (nearly back to pre-baby wt (dtr is 13 months old)) well-balanced diet: daily or most days daily servings fruits/ve-4 caffeine: Yes (aware of 200mg limit) Type(s) of exercise: walking, swimming and other (hiking) Meds Home Medications and Allergies Home Medications Medication Instructions Recorded Confirmed Type cephalexin 250 mg capsule 250 mg PO BID bladder infection 11/03/22 05/05/23 History vitamin-ferrous sulfate tab PO 01/24/23 05/05/23 History 27 mg iron-folic acid 0.8 mg tablet Allergies Allergy/AdvReac Type Severity Reaction Status Date / Time Latex, Natural Rubber Allergy Intermediate Rash Verified 05/05/23 15:09 nitrofurantoin Allergy Intermediate Chest Pain Verified 05/05/23 15:09 OB Exam Vital signs Blood Pressure: 104/64 Pulse Rate: 64 HENMT Head: normal to inspection Mouth: oral mucosae normal Resp Effort & Inspection: normal respiratory effort Auscultation: clear to auscultation bilaterally Cardio Rate: regular rate Rhythm: regular rhythm Heart Sounds: S1 normal and S2 normal Extremities Lower extremity: Yes normal to inspection GI Inspection: normal to inspection and other (Uterus measures 27 cm) Palpation: Yes soft Auscultation: normal bowel sounds, normoactive bowel sounds and other Other: Digital rectal exam revealed a 1 cm hemorrhoid which did not appear to be inflamed and was only minimally tender. There was constipated stool reached at roughly 4 cm from the verge of the anus. This is nodular and compatible with constipation. Assessment and Plan Assessment and Plan Assessment and Plan narrative: Patient is a 27-year-old female at 27 weeks and 5 7th. She has constipation which appears to be longstanding in nature but now is complicated with the consumption of iron. At this time we will administer a Fleet's enema and will place patient on MiraLax to maintain her bowel function. We will also recommended she go on Colace twice daily for the remainder of her .
[2023-05-27 18:36] VITALS: BP 104/64; PULSE 64
[2023-05-27] MEDS: MINERAL OIL 1 EACH ENEMA PR (18:38)
[2023-05-27] MEDS: FLEETS ENEMA 1 EACH PR (19:51)
[2023-05-27] MEDS: polyethylene glycoL 3350 17 GM POWD.PACK PO (19:52)
== END 2023-05-27 21:30 | disposition home or self-care (01) ==
LOC: LABOR 16:49
PROVIDERS: Admitting Provider Obstetrics & Gynecology; PCP Family Medicine; Referring Provider Obstetrics & Gynecology; Visit Provider Obstetrics & Gynecology
DX: O26.892 Other specified pregnancy related conditions, second trimester (principal); K59.00 Constipation, unspecified; Z3A.27 27 weeks gestation of pregnancy
CPT/HCPCS: 99221; G0378; G0379

== ENCOUNTER → 2023-06-05 13:51 | Outpatient (CLI) | payer OTHER, SELFPAY ==
--- NOTE | 2023-06-05 13:52 | DI.ECHO.S_ITS ---
[place] [facility]---------+ [facility] +---------+ : : [address] : : : : [id number] : : : : Phone: [phone]+ Echocardiogram Report + + :Name: JAROCHO ARENAS Study Date: 06/05/2023 Height: 67.5 in: :[facility] ReadingLocation: Weight: 170 lb : : Gender: Female BSA: 1.9 m2 : :: 1995 Age: 27 yrs BP: 102/66 mmHg: :Reason For Study: FAMILY HISTORY OF VALVE DISEASE : :Ordering Physician: MINH, : :JOAQUIM Performed By: Radha Becerra : :Referring: JOAQUIM WILKINSON : + + Interpretation Summary The left ventricle is normal in size and wall thickness. The left ventricular ejection fraction is normal. The ejection fraction is estimated to be 55-60%. Diastolic parameters suggest probable normal left ventricular diastolic function and normal filling pressures. The right ventricle is normal in size and function. No significant valvular pathology seen. The IVC is of normal diameter and collapses greater than 50% with a sniff. This suggests a low right atrial pressure of 3 mm Hg. Procedure: A two-dimensional transthoracic echocardiogram with color flow and Doppler was performed. The study quality was technically adequate. There is no prior echocardiogram noted for this patient. The patient was in sinus rhythm with heart rates between 72-98 bpm during the exam. Left Ventricle: The left ventricle is normal in size and wall thickness. There is no thrombus. The ejection fraction is estimated to be 55-60%. The left ventricular ejection fraction is normal. There are no focal wall motion abnormalities. Diastolic parameters suggest probable normal left ventricular diastolic function and normal filling pressures. Right Ventricle: The right ventricle is normal in size and function. Atria: The left atrial size is normal. Right atrial size is normal. There is no Doppler evidence for an interatrial shunt. Mitral Valve: The mitral valve is normal in structure and function. Redundant elongated chordae are noted. There is no mitral valve stenosis. There is trace mitral regurgitation. Aortic Valve: The aortic valve is normal in structure and function. The aortic valve is trileaflet. There is no aortic valve stenosis. No aortic regurgitation is present. Tricuspid Valve: The tricuspid valve is normal in structure and function. There is a trace or physiologic amount of tricuspid regurgitation. Pulmonary artery pressures cannot be estimated because of the lack of a measurable TR jet velocity. Pulmonic Valve: The pulmonic valve leaflets are thin and pliable; valve motion is normal. There is trace pulmonic regurgitation. Great Vessels: The aortic root is normal size. The ascending aorta could not be visualized. The dimensions of the ascending aorta are normal. The pulmonary artery is normal size. The IVC is of normal diameter and collapses greater than 50% with a sniff. This suggests a low right atrial pressure of 3 mm Hg. Pericardium/ Pleura There is no pericardial effusion. There is no pleural effusion. MMode/2D Measurements & Calculations LVIDd: 5.3 cm LVOT diam: 2.2 cm LVIDs: 3.8 cm Ao root diam: 3.1 cm FS: 28.9 % Ao Arch Diam (Prox Trans): 2.8 cm IVSd: 0.97 cm LVPWd: 0.85 cm LV salter. diameter/BSA (cm/m^2): 2.8 LV sys. diameter/BSA (cm/m^2): 2.0 LA A2 area: 12.8 cm2 RA long axis: 5.3 cm LA A4 area: 17.4 cm2 RA area: 16.9 cm2 LA length (vol): 5.0 cm RA vol: 45.6 ml LA vol: 38.1 ml RA : 24.0 ml/m2 LA vol index: 20.0 ml/m2 IVC diam: 1.5 cm RVD1 (basal): 3.5 cm RVD2 (mid): 2.4 cm TAPSE: 1.7 cm Doppler Measurements & Calculations Ao V2 max: 128.4 cm/sec LVOT Max Spencer: 105.2 cm/sec Ao V2 mean: 94.7 cm/sec LV V1 max P.4 mmHg Ao max P.6 mmHg LV V1 VTI: 18.8 cm Ao mean P.9 mmHg ESTEVAN(I,D): 3.2 cm2 Ao V2 VTI: 22.4 cm ESTEVAN(V,D): 3.1 cm2 sev ratio: 0.84 ESTEVAN indexed to BSA (cm^2/m^2): 1.7 MV E max spencer: 69.0 cm/sec PA V2 max: 86.9 cm/sec MV A max spencer: 54.2 cm/sec PA V2 mean: 68.2 cm/sec MV E/A: 1.3 PA mean P.0 mmHg Med Peak E' Spencer: 9.6 cm/sec PA pr(Accel): 45.6 mmHg E/E' med: 7.2 Lat Peak E' Spencer: 12.4 cm/sec E/E' lat: 5.5 E/e' average: 6.3 MV dec time: 0.18 sec SV(LVOT): 72.4 ml Reading Physician:03:32 PM
== END ==
PROVIDERS: PCP Family Medicine; Referring Provider Obstetrics & Gynecology; Visit Provider Obstetrics & Gynecology
DX: Z34.82 Encounter for supervision of other normal pregnancy, second trimester (principal); Z82.49 Family history of ischemic heart disease and other diseases of the circulatory system
CPT/HCPCS: 93306

== ENCOUNTER → 2023-07-25 11:14 | Outpatient (CLI) | payer OTHER, SELFPAY ==
[2023-07-26 14:00] LABS: Strep Grp B PCR NEG for Grp B Strep
== END ==
PROVIDERS: PCP Family Medicine; Visit Provider Obstetrics & Gynecology
DX: Z34.03 Encounter for supervision of normal first pregnancy, third trimester (principal); Z3A.36 36 weeks gestation of pregnancy
CPT/HCPCS: 87653

== ENCOUNTER 2023-07-27 07:59 | Outpatient (CLI) | payer OTHER, SELFPAY | END 2023-07-27 08:11 | disposition home or self-care (01) | LOC: LABOR 08:03 → OB 08-21 09:01 | PROVIDERS: PCP Family Medicine; Referring Provider Obstetrics & Gynecology; Visit Provider Obstetrics & Gynecology | DX: O26.93 Pregnancy related conditions, unspecified, third trimester (principal); Z3A.37 37 weeks gestation of pregnancy | CPT/HCPCS: G0378; G0379 ==

== ENCOUNTER 2023-07-31 08:09 | Outpatient (CLI) | payer OTHER, SELFPAY ==
[2023-07-31 08:46] LABS: Add Manual Diff / Slide Review NO; Basophils Absolute Auto 100 /uL (0-100); Basophils Percent Auto 1.2 % (0-2); Eosinophils Absolute Auto 200 /uL (0-450); Eosinophils Percent Auto 1.8 % (2-4); Hematocrit 34.2 % (36-46); Hemoglobin 12.1 g/dL (12.0-16.0); Lymphocytes Absolute Auto 1700 /uL (1100-4500); Lymphocytes Percent Auto 17.3 % (25-40); Mean Corpuscular HGB Conc 35.3 % (30-36); Mean Corpuscular Hemoglobin 33.9 PG (26-34); Monocytes Absolute Auto 900 /uL (0-900); Monocytes Percent Auto 9.7 % (3-14); Neutrophils Absolute Auto 6900 /uL (1500-7000); Platelet Count 203 X10^3/uL (150-400); Red Blood Cell Count 3.56 X10^6/uL (4.0-5.2); Red Cell Distribution Width 13.9 % (11.6-14.8); White Blood Cell Count 9.8 X10^3/uL (4.5-11.0)
[2023-07-31] MEDS: TERBUTALINE 1 MG/ML VIAL 0.25 MG SUBCUT (09:39)
--- NOTE | 2023-07-31 18:20 | P.TNLD_ITS ---
Visit Information Visit Information Date of evaluation: 07/31/23 Primary OB Provider: Jenni Smith On-call OB Provider: Jenni Smith Comments/Additional reasons for admission: Patient was scheduled for a version. On ultrasound, baby in vertex presentation. [facility] Medical History (Updated 07/11/23 @ 16:23 by Lorenzo Siddiqui MD) Mastitis Family history of rheumatoid arthritis Endometrioma hemorrhage Spontaneous vaginal delivery (~01/14/22) Ovarian cyst (~06/2021) UTI (urinary tract infection) (~2020) Acne Surgical History (Updated 01/24/23 @ 13:09 by Rafia Hope, RN) History of laparotomy Anesthesia History of wisdom tooth extraction (~11/2020) History of appendectomy (~2016) Family History (Updated 01/24/23 @ 13:12 by Rafia Hope, RN) Mother Arthritis, rheumatoid Father Hypertension Heart disease History of coronary artery stent placement Grandmother Diabetes mellitus Heart disease Grandfather Dementia Grandfather Skin cancer Grandmother Cancer Leukemia Social History marital status: number of children: 1 (step son during [place]) household members: spouse and children lives independently: Yes caregiver/support person: Yes housing: house pets and animals: Yes (dogs) education level: college (bachelor's degree) occupational status: unemployed current occupational exposures/hazards: No lilo/orthodoxy: Adventism special lilo needs: No travel history: recent ([place]; had traveler's diarrhea while there) seatbelt use: always helmet use: Yes water heater temp set < 120 deg: Yes working smoke detector in home: Yes fire extinguisher in home: Yes carbon monox detector in home: Yes firearms in home: Yes firearms unloaded and locked: Yes do you feel safe at home: Yes Smoking Status: Never smoker second hand exposure: No alcohol intake: former (rarely when not ) substance use type: does not use during the past year weight has: other (nearly back to pre-baby wt (dtr is 13 months old)) well-balanced diet: daily or most days daily servings fruits/ve-4 caffeine: Yes (aware of 200mg limit) Type(s) of exercise: walking, swimming and other (hiking) Objective Labs 07/31/23 08:36 Labs: Laboratory Results - last 24 hr 07/31/23 07/31/23 08:00 08:36 WBC 9.8 RBC 3.56 L Hgb 12.1 Hct 34.2 L MCV 96.0 MCH 33.9 MCHC 35.3 RDW 13.9 Plt Count 203 Neut % (Auto) 70.0 Lymph % (Auto) 17.3 L [place] % (Auto) 9.7 Eos % (Auto) 1.8 L Baso % (Auto) 1.2 Neut # (Auto) 6900 Lymph # (Auto) 1700 [place] # (Auto) 900 Eos # (Auto) 200 Baso # (Auto) 100 Blood Type O Positive Antibody Screen Negative Evaluation Evaluation Baseline heart rate: 135 Variability: Moderate (11-25) monitor accelerations: Present Monitor Decelerations: Absent Category of Tracing: Reactive Diagnosis, Plan/Disposition Plan/Disposition Plan: Assessment: 28-year-old 2 para 1 at 37 weeks' gestation who presented for an external cephalic version By ultrasound, baby found to be in the vertex presentation Nonstress test reactive Plan: Patient to follow-up next Monday for routine OB exam Warning signs reviewed
== END 2023-07-31 10:00 | disposition home or self-care (01) ==
LOC: LABOR 08:37 → OB 08-01 08:51
PROVIDERS: PCP Family Medicine; Referring Provider Obstetrics & Gynecology; Visit Provider Obstetrics & Gynecology
DX: O32.1XX0 Maternal care for breech presentation, not applicable or unspecified (principal); Z3A.37 37 weeks gestation of pregnancy
CPT/HCPCS: 59025; 85025; 86850; 86900; 86901; 96372; G0378; G0379

== ENCOUNTER 2023-08-23 10:39 | Outpatient (CLI) | payer OTHER, SELFPAY | END 2023-08-23 11:30 | disposition home or self-care (01) | LOC: LABOR 11:15 → OB 08-25 10:01 | PROVIDERS: PCP Family Medicine; Referring Provider Obstetrics & Gynecology; Visit Provider Obstetrics & Gynecology | DX: O48.0 Post-term pregnancy (principal); Z3A.40 40 weeks gestation of pregnancy | CPT/HCPCS: 59025; G0378; G0379 ==

== ENCOUNTER 2023-08-24 19:06 | Inpatient (IN) | payer OTHER, SELFPAY ==
[2023-08-24] MEDS: miSOPROStoL 25 MCG TABLET 50 MCG PO (20:54)
[2023-08-24 21:36] VITALS: BP 132/68
[2023-08-24] MEDS: ZOLPIDEM 5 MG TABLET 10 MG PO (22:15)
[2023-08-25] MEDS: miSOPROStoL 25 MCG TABLET 50 MCG PO (01:30)
[2023-08-25] MEDS: LACTATED RINGERS 1,000 ML 100 ML IV ×2 (02:50→09:10)
[2023-08-25] MEDS: TERBUTALINE 1 MG/ML VIAL SUBCUT (03:50)
--- NOTE | 2023-08-25 08:23 | PM.OBHP.IH.1 ---
OB HPI Date/Time Date of admission: 08/24/23 Date Patient Seen: 08/25/23 Time Patient Seen: 07:20 History of Present Condition Chief complaint: OB DANNIE Calculator Estimated Delivery Date Method Current WG Current Estimate 08/21/23 LMP (Certain) 40w 4d Other Estimates 08/26/23 Ultrasound #1 39w 6d Estimated Gestational Age (weeks): 40+4 : 2 Para: 1 care: good care, initiated at week # (12), number of visits (11) and pounds weight gain (42) Dating criteria OB: LMP confirmed by 1st trimester US Ultrasounds: normal 1st trimester US and normal mid trimester US Obstetrical complications: none Medical complications OB: genitourinary (endometriosis) Indications Indication for induction OB: post dates Preadmission Labs Last OB Lab Results: Blood Type O Positive 07/31/23 08:00 Antibody Screen Negative 07/31/23 08:00 Hematocrit 34.2 % (36-46) L 07/31/23 08:36 Hemoglobin 12.1 g/dL (12.0-16.0) 07/31/23 08:36 Hepatitis B Surface Antigen Negative s/c (NEGATIVE) 02/06/23 14:23 Hepatitis C Antibody Negative s/c (NEGATIVE) 02/06/23 14:23 Rubella Antibody 21.9 IU/mL (>15) 02/06/23 14:23 Varicella-Zoster IgG Antibody 621 index (Immune >165) 02/06/23 14:23 Glucose 1 Hour 92 mg/dL (76-139) 05/15/23 14:55 Group B Streptococcus (PCR) Neg for grp b strep 07/25/23 11:14 -: Chlamydia screen: negative, Gonorrhea screen: negative and Urine: negative -: PAP smear: Normal External Labs -: Urine: negative Prior (ies) Past Pregnancies Del. Date GA/Weeks Labor Lgth Wt Sex Route Outcome Anesthesia Place Delv Breastfeed Preg Comp Name 01/14/22 40+1 13 8 lb 1.843 oz Female vaginal live - full term [facility] current [place] Delivery Date: 01/14/22 Last Updated by: Rafia Hope, RN Large left ovarian cyst removed Evaluation Evaluation Baseline heart rate: 140 Variability: Moderate (11-25) monitor accelerations: Present Monitor Decelerations: Absent Contraction Frequency (minutes): 6 Uterine Contraction Intensity: Mild Dilation (cm): 4 Effacement (%): 85 station: -1 [facility] Medical History (Updated 07/11/23 @ 16:23 by Lorenzo Siddiqui MD) Mastitis Family history of rheumatoid arthritis Endometrioma hemorrhage Spontaneous vaginal delivery (~01/14/22) Ovarian cyst (~06/2021) UTI (urinary tract infection) (~2020) Acne Surgical History (Updated 01/24/23 @ 13:09 by Rafia Hope RN) History of laparotomy Anesthesia History of wisdom tooth extraction (~11/2020) History of appendectomy (~2016) Family History (Updated 01/24/23 @ 13:12 by Rafia Hope RN) Mother Arthritis, rheumatoid Father Hypertension Heart disease History of coronary artery stent placement Grandmother Diabetes mellitus Heart disease Grandfather Dementia Grandfather Skin cancer Grandmother Cancer Leukemia Social History marital status: number of children: 1 (step son during [place]) household members: spouse and children lives independently: Yes caregiver/support person: Yes housing: house pets and animals: Yes (dogs) education level: college (bachelor's degree) occupational status: unemployed current occupational exposures/hazards: No lilo/baptist: [employer] special lilo needs: No travel history: recent ([place]; had traveler's diarrhea while there) seatbelt use: always helmet use: Yes water heater temp set < 120 deg: Yes working smoke detector in home: Yes fire extinguisher in home: Yes carbon monox detector in home: Yes firearms in home: Yes firearms unloaded and locked: Yes do you feel safe at home: Yes Smoking Status: Never smoker second hand exposure: No alcohol intake: former (rarely when not ) substance use type: does not use during the past year weight has: other (nearly back to pre-baby wt (dtr is 13 months old)) well-balanced diet: daily or most days daily servings fruits/ve-4 caffeine: Yes (aware of 200mg limit) Type(s) of exercise: walking, swimming and other (hiking) Meds Home Medications and Allergies Home Medications Medication Instructions Recorded Confirmed Type cephalexin 250 mg capsule 250 mg PO BID bladder infection 11/03/22 08/23/23 History vitamin-ferrous sulfate tab PO 01/24/23 08/23/23 History 27 mg iron-folic acid 0.8 mg tablet hydrocortisone 1 %-pramoxine 1 % 1 applic TN TID-QID PRN 07/11/23 08/23/23 Rx rectal foam (Proctofoam HC) hemorrhoids #20 grams Allergies Allergy/AdvReac Type Severity Reaction Status Date / Time Latex, Natural Rubber Allergy Intermediate Rash Verified 08/23/23 09:53 nitrofurantoin Allergy Intermediate Chest Pain Verified 08/23/23 09:53 OB Exam Narrative Exam Narrative: Generally: Patient is sitting up in bed, no acute distress Lungs: Clear to auscultation bilaterally Cardiovascular: Regular rate and rhythm Fundal height: 39 cm Estimated weight: 8 lb Extremities: No edema Assessment and Plan Assessment and Plan Assessment and Plan narrative: Assessment: 28-year-old 2 para 1 at 40-,4/7 weeks gestation status post oral misoprostol Favorable cervix Some late decelerations overnight, these have resolved Plan: Begin Pitocin Epidural AROM once epidural in place Expected management to spontaneous vaginal delivery Time Spent with Patient Total time spent with greater than 50% in coordination of care (as documented) at patient's floor/unit and/or counseling patient:: 15-24 minutes
[2023-08-25] MEDS: OXYTOCIN PREMIX 30 UNIT/500 ML PLAST..BAG IV (09:09)
--- NOTE | 2023-08-25 10:10 | PM.AN.REGBLK ---
Regional Block Pre-procedure Procedure: Continuous Lumbar Epidural for L&D Attending OB provider: Jenni Smith PMH/ROS narrative: 28yo 40w5d in labor requesting epidural. See Pre-anesthesia assessment note for more details. ASA Class: II Labs: H&H 12.1/34.2, plt 203 Medications: Current Medications Generic Name Dose Route Start Last Admin Trade Name Freq PRN Reason Stop Dose Admin Calcium Carbonate 500 mg 08/24/23 20:42 Calcium Carbonate 500 Mg Tab PO PRN PRN Dyspepsia Diphenhydramine HCl 25 mg 08/25/23 10:08 Diphenhydramine 50 Mg/Ml Vial IV Q10M PRN Pruritis Ephedrine Sulfate 5 mg 08/25/23 10:08 Ephedrine 50 Mg/Ml Vial IV Q5M PRN Blood pressure decrease more than 20% of baseline. Lactated Ringer's 1,000 mls @ 100 mls/hr 08/24/23 20:45 08/25/23 09:10 Lactated Ringers IV 100 mls/hr CONT TOSHIA Administration Oxytocin/Lactated Ringer's 30 unit in 500 mls @ 1 mls/hr 08/25/23 08:11 08/25/23 09:09 Oxytocin Premix IV 1 milliunit/min TITRATE TOSHIA 1 mls/hr Administration Protocol 1 MILLIUNIT/MIN FENT 2MCG/ML BUPIV 0.125% EPI 200 mcg in 100 mls @ 6 mls/hr 08/25/23 10:15 Fentanyl/Bupiv/Ns 2mcg/Ml - 0.125% EPIDURAL CONT TOSHIA Misoprostol 50 mcg 08/24/23 21:00 08/25/23 01:30 Misoprostol 25 Mcg Tablet PO 50 mcg QID TOSHIA Administration Nalbuphine HCl 2.5 mg 08/25/23 10:08 Nalbuphine 20 Mg/Ml Ampul IV Q10M PRN Pruritis Zolpidem Tartrate 10 mg 08/24/23 20:43 08/24/23 22:15 Zolpidem 5 Mg Tablet PO 10 mg BEDTIME PRN Administration Sleep Allergies: Allergies Allergy/AdvReac Type Severity Reaction Status Date / Time Latex, Natural Rubber Allergy Intermediate Rash Verified 08/23/23 09:53 nitrofurantoin Allergy Intermediate Chest Pain Verified 08/23/23 09:53 Procedure Insertion date: 08/25/23 Insertion time: 09:45 Prep/Local: 1% lidocaine (Chloraprep) Interspace: L2-3 Patient position: sitting Needle: 18 gauge Zafar Loss of resistance with: saline DAVIDSON at (cm): 4 Catheter placed at SKIN (cm): 12 Catheter in SPACE (cm): 8 Sensory level: First attempt at L3-4; juma blood in catheter; aborted. Second as doc. Insertion: No CSF, Yes Blood, No Paresthesia with insertion, No Paresthesia with injection and No Test dose reaction Initial Medications TEST DOSE time: 09:48 TEST DOSE: 1.5% lidocaine with epinephrine 1:200k (mL): 3 BOLUS DOSE time: 09:49 BOLUS DOSE (mL): 2 Infusion INFUSION: 0.125% bupivacaine and with fentanyl 2 mcg/mL Initial rate (mL/hr): 8 Subsequent interventions: 10:05 Clinician bolus via catheter, 5 ml. Pt appears comfortable and relaxed. 15:00 Pt requested additional medication via epidural. She was recently checked and is at 8 cm. Pt appears comfortable but not having a contraction during my assessment. She reports she feels contractions but declines to give a number. She asked about the epidural covering sciatic pain, and I told her it would not cover that well. Pt reports she can move RLE somewhat, LLE not much at all. Epidural infusion pump programmed for rate of 10 ml/hr (from 8), bolus of 5 ml (from 4), but no bolus given. Pt appears comfortable and satisfied. Post-procedure Anesthesia date START: 08/25/23 Anesthesia time START: 09:33 Anesthesia date END: 08/25/23 Anesthesia time END: 15:29 Post-procedure Anesthesia Assessment: Yes CV function: HR/BP stable, Yes Resp function: RR/sat/airway adequate, Yes Post-op hydration adequate, Yes Pain control adequate, Yes Nausea & vomiting absent, Yes Temperature > 36 C, Yes Mental status appropriate and No Anesthesia complications
--- NOTE | 2023-08-25 12:44 | PM.OBPNLAB ---
Date/Time Date Patient Seen: 08/25/23 Time Patient Seen: 11:00 Pain Control Pain control: epidural Pelvic Exam Dilation (cm): 5 Effacement (%): 85 station: -1 Amniotic membrane status: Intact Contractions Contractions on admission: none Monitor mode: External Pitocin rate (mU/min): 4 Contraction frequency (min): 3 Contraction duration (min): 1 Contraction pattern: Regular Contraction intensity: Moderate Status Heart Rate Baseline: 140 Monitor Accelerations: Present Monitor Decelerations: Absent Monitor Variability: Moderate Assessment and Plan Assessment: active labor Plan: continuous present management Comments: Expectant management to
--- NOTE | 2023-08-25 12:55 | PM.OBPNLAB ---
Date/Time Date Patient Seen: 08/25/23 Time Patient Seen: 12:55 Pain Control Pain control: epidural Pelvic Exam Dilation (cm): 5 Effacement (%): 100 station: +1 Amniotic membrane status: Ruptured Contractions Monitor mode: External Pitocin rate (mU/min): 7 Contraction frequency (min): 3 Contraction duration (min): 1 Contraction pattern: Regular Contraction intensity: Strong/Firm Status Heart Rate Baseline: 140 Monitor Accelerations: Present Monitor Decelerations: Early Monitor Variability: Moderate Assessment and Plan Assessment: active labor Plan: continuous present management Comments: Expectant management to
--- NOTE | 2023-08-25 15:54 | P.PCNOB_ITS ---
Events: Labor Induction Labor & Delivery Delivery date: 08/24/23 Intrapartal Events: None Cervical ripening method: per misoprostal protocol Induction method: per pitocin protocol Delivery augmentation: rupture of membranes Delivery monitor: external FHT and external uterine Route of delivery: Episiotomy description: None L&D Laceration Description: None Quantitative Blood Loss: 150 Anesthesia Type: Epidural Complications: None Narrative: Patient complete and pushed x 19 minutes. At 1529, a live male delivered spontaneously over an intact perineum. No nuchal cord. The remainder of the body delivered without difficulty and was placed on [facility] [place]. Pitocin was given in IVF's. The cord was double-clamped and cut after it stopped pulsing. Cord bloods were obtained. The placenta delivered intact with a 3 Vessel cord at 1537. The fundus was massaged to firm. QBL 150cc. Apgars 7 at 1 minute and 9 at 5 minutes. Epidural. . Mom and infant stable to recovery. [place] [facility] 1: gender: Male Presentation: vertex Position: Right Occiput Anterior Placenta delivery description: Spontaneous Cord Vessel Description: 3 Vessels score (1 min): 7 score (5 min): 9 weight: 7 lb 6.8 oz Plan for aftercare: Routine care
[2023-08-26] MEDS: IBUPROFEN 600 MG TABLET PO (05:49)
[2023-08-26 06:22] LABS: Hematocrit 33.2 % (36-46); Hemoglobin 11.6 g/dL (12.0-16.0)
[2023-08-26 11:14] VITALS: BP 132/68
--- NOTE | 2023-08-27 17:24 | PM.OBDS.1 ---
Discharge Providers Provider Date of admission: 08/24/23 19:06 Discharge Date: 08/25/23 Primary care physician: Lorne Craven DO Consults: Anesthesia Discharge provider: Jenni Smith MD Summary Hospital Course Date Patient Seen: 08/26/23 Time Patient Seen: 08:30 Diagnoses: 40+3 wks gestation Cervical ripening Pitocin induction of labor Artificial rupture of membranes Spontaneous vaginal delivery Hospital Course: Patient is a 28 year old who presented on 08/24/23 for cervical ripening. She received Misoprostol overnight. She was started on Pitocin on 08/25/23 in the am with a favorable cervix. An epidural was placed. Artificial rupture of membranes was performed. She progressed to complete and had an without complication. Her course was unremarkable and she was discharged to home on 08/26/23. Peripartum Data Delivery Method: Natural Vaginal Laceration Description: None Episiotomy description: None Procedures: Cervical ripening with Misoprostol Pitocin induction of labor Artificial rupture of membranes Spontaneous vaginal delivery Epidural analgesia complications: none 1: Gender: Male Disposition of : home Status at Discharge Cognitive/behavioral status at discharge: oriented Functional status at discharge: independent ambulation Overall status at discharge: patient is progressing back to baseline Time Spent with Patient Time attestation: Total time spent providing and/or coordinating discharge services: Time spent: Less than 30 minutes Objective Labs 08/26/23 06:00 Exam Narrative Exam Narrative: Gen: Sitting up in bed, NAD Fundus: Firm U/-1 Ext: No edema, negative Sarita's Discharge Plan Discharge Plan Patient Disposition: Home Provider Discharge Comment: Ibuprofen 600 mg every 6 hours as needed for cramping Call with fever, chills, or bleeding vaginally more than a pad in an hour Push oral fluids Discharge orders & Medications Prescriptions: Continued vit-ferrous sulfat-FA 27 mg iron- 0.8 mg tablet PO Proctofoam HC 1-1 % foam 1 applic [place] TID-QID PRN (Reason: hemorrhoids) Qty: 20 4RF Discontinued cephalexin 250 mg capsule 250 mg PO BID Follow up/Referrals: Jenni Smith MD [Physician] - (My office will call to schedule 6 wk visit on Monday) Diet/Activity/Treatments Diet: Regular Activity: Nothing in the vagina for 6 weeks Skin/Wound/Dressing Care Report to your healthcare provider any signs of infection, such as:: chills, fever, increased pain and unusual drainage Visit Report/Discharge Packet Instructions: DI for Labor and Delivery, Vaginal Stand Alone Forms: Discharge: Care, Patient Portal/API, Stroke Signs & Symptoms Discharge Data Primary Care Provider: Lorne Craven
== END 2023-08-26 14:30 | disposition home or self-care (01) | DRG 807 ==
PROVIDERS: Admitting Provider Obstetrics & Gynecology; PCP Family Medicine; Referring Provider Obstetrics & Gynecology; Visit Provider Obstetrics & Gynecology
DX: O80 Encounter for full-term uncomplicated delivery (principal); Z37.0 Single live birth; Z3A.40 40 weeks gestation of pregnancy
CPT/HCPCS: 36415; 59050; 59200; 59400; 85014; 85018; G0379; J2590

== ENCOUNTER → 2024-12-13 14:46 | Outpatient (CLI) | payer OTHER, SELFPAY ==
[2024-12-13 18:32] LABS: Urine Chlamydia NOT DETECTED; Urine N gonorrhoeae NOT DETECTED
== END ==
PROVIDERS: PCP Student in an Organized Health Care Education/Training Program; Visit Provider Obstetrics & Gynecology
DX: Z11.3 Encounter for screening for infections with a predominantly sexual mode of transmission (principal)
CPT/HCPCS: 87491; 87591

== ENCOUNTER → 2025-01-07 16:21 | Outpatient (CLI) | payer OTHER, SELFPAY ==
[2025-01-07 16:48] LABS: Add Manual Diff / Slide Review NO; Hematocrit 37.5 % (36-46); Hemoglobin 13.0 g/dL (12.0-16.0); Lymphocytes Absolute Auto 1800 /uL (1100-4500); Mean Corpuscular HGB Conc 34.6 % (30-36); Mean Corpuscular Hemoglobin 31.5 PG (26-34); Mean Corpuscular Volume 91.1 fL (80-100); Platelet Count 247 X10^3/uL (150-400)
[2025-01-07 21:08] LABS: Hepatitis B Surface Antigen NEGATIVE s/c (NEGATIVE)
[2025-01-07 21:27] LABS: HIV 1 & 2 Ab/Ag 4th Gen Combo NEGATIVE (NEGATIVE); Hep C Virus Ab w/Reflex Quant NEGATIVE s/c (NEGATIVE)
== END ==
PROVIDERS: PCP Student in an Organized Health Care Education/Training Program; Referring Provider Obstetrics & Gynecology; Visit Provider Obstetrics & Gynecology
DX: Z34.80 Encounter for supervision of other normal pregnancy, unspecified trimester (principal)
CPT/HCPCS: 36415; 80055; 86787; 86803; 86850; 86900; 86901; 87086; 87389

== ENCOUNTER → 2025-04-16 15:37 | Outpatient (CLI) | payer OTHER, SELFPAY ==
[2025-04-16 17:53] LABS: Hematocrit 33.9 % (36-46); Hemoglobin 11.9 g/dL (12.0-16.0)
[2025-04-16 18:17] LABS: GTT (PREG) 1 Hour PP 50gm Dose 108 mg/dL (76-139)
== END ==
PROVIDERS: PCP Student in an Organized Health Care Education/Training Program; Referring Provider Student in an Organized Health Care Education/Training Program; Visit Provider Student in an Organized Health Care Education/Training Program
DX: Z34.92 Encounter for supervision of normal pregnancy, unspecified, second trimester (principal); Z3A.24 24 weeks gestation of pregnancy
CPT/HCPCS: 36415; 82950; 85014; 85018

== ENCOUNTER 2025-06-18 11:20 | Observation (INO) | payer OTHER, SELFPAY ==
--- NOTE | 2025-06-18 11:54 | P.TNLD_ITS ---
Visit Information Visit Information Date of evaluation: 06/18/25 Primary OB Provider: Kaya Cross On-call OB Provider: Ellie Du Reason for Evaluation: Yes non-stress test Comments/Additional reasons for admission: 30 yo present at 36w3d for decreased movement. She is also noting floaters in her vision and swelling. Last night she felt excessive movement then overnight had decreased. THsi mornign when she woke up, the movement continued to be less than baselien so she came in for eval. Initial BP on arrival 145/71. There is family hx of congenital cardiac anomalies in FOB side of family so echo was completed with cardiology consult at 22 weeks EGA with no structural abnormalities of the hear and nml HR at that time [facility] Medical History (Updated 05/07/25 @ 09:59 by Radha Falk RN) Vaginal delivery (~08/25/23) Hemorrhoids during in third trimester Constipation during in third trimester Mastitis Endometrioma hemorrhage Spontaneous vaginal delivery (~01/14/22) Ovarian cyst (~06/2021) UTI (urinary tract infection) (~2020) Acne Surgical History (Updated 11/28/24 @ 11:06 by Rafia Hope RN) History of laparotomy (~2021) Anesthesia History of wisdom tooth extraction (~11/2020) History of appendectomy (~2016) Family History (Updated 11/28/24 @ 11:09 by Rafia Hope RN) Mother Arthritis, rheumatoid Father Hypertension Heart disease History of coronary artery stent placement Basal cell carcinoma (BCC) Grandmother Diabetes mellitus Heart disease Congestive heart failure Grandfather Dementia Grandfather Skin cancer Grandmother Cancer Leukemia Social History marital status: number of children: 3 (including part-time stepchild) household members: spouse and children lives independently: Yes caregiver/support person: Yes housing: house pets and animals: Yes (dogs) education level: college (bachelor's degree) occupational status: unemployed current occupational exposures/hazards: No lilo/advent: [employer]ism special lilo needs: No travel history: recent (domestic/[place]) seatbelt use: always helmet use: Yes water heater temp set < 120 deg: Yes working smoke detector in home: Yes fire extinguisher in home: Yes carbon monox detector in home: Yes firearms in home: Yes firearms unloaded and locked: Yes do you feel safe at home: Yes second hand exposure: No alcohol intake: former (rarely when not ) substance use type: does not use during the past year weight has: other (~10 lb over pre- weight) well-balanced diet: daily or most days daily servings fruits/ve or more times/day caffeine: No Type(s) of exercise: walking and other (active w/ kids) Review of Systems Review of Systems Narrative: + swelling + vision changes + dizziness + movement but frequency slightly decreased Exam Narrative Exam Narrative: BP 145/ 75 --> 120/78 GEN: Healthy appearing, well-developed, NAD. PSYCH: Good Judgment. AOx3. Normal memory, mood, and affect HEENT: -Head: NC/AT -Eyes: No discharge or redness CV: warm and well perfused LUNGS: breathing comfortably on RA SKIN: Warm, well perfused. No skin rashes or abnormal lesions ABd: gravid Neuro: non-focal Objective Labs 06/18/25 12:30 06/18/25 12:30 Evaluation Evaluation Baseline heart rate: 140 Variability: Moderate (6-25) monitor accelerations: Present Monitor Decelerations: Absent Status: Category l Diagnosis, Plan/Disposition Plan/Disposition Plan: 30 yo present at 36w3d for decreased movement. She is also noting floaters in her vision and swelling. Initial BP on arrival 145/71. REcently she has been recieving weekly IVF infusions due to dizziness and hypotension. She has not been able to get one this week due to holiday scheduling. There is family hx of congenital cardiac anomalies in FOB side of family so echo was completed with cardiology consult at 22 weeks EGA with no structural abnormalities of the hear and nml HR at that time. On exam, occassional missed beats heard on FHT. Arythmia does sounds consistent wtih PAC. FHT is overall reassuring wtih + accels and no declerations wtih moderate variability. Overall reassuring exam. Labs sent for elevated BP and vision changes. While awaiting labs, will give 1L IVF to see if this improves frequency of irregular HR. Call placed to [facility] consult line, then transferred to [place] who read the ECHO. they are able to see her for eval in the coming week. If unable to schedule, they are recommending evaluation, if persistent recommend EKG done after delivery. Urgent referral placed to [facility] for eval of arrhythmia OB Disposition: home
[2025-06-18 12:43] LABS: Add Manual Diff / Slide Review NO; Hematocrit 35.8 % (36-46); Hemoglobin 12.3 g/dL (12.0-16.0); Lymphocytes Absolute Auto 1400 /uL (1100-4500); Mean Corpuscular HGB Conc 34.5 % (30-36); Mean Corpuscular Hemoglobin 33.2 PG (26-34); Mean Corpuscular Volume 96.2 fL (80-100); Platelet Count 195 X10^3/uL (150-400)
[2025-06-18 12:56] LABS: Alanine Aminotransferase 15 IU/L (<35); Albumin 3.8 g/dL (3.5-5.0); Albumin Globulin Ratio 1.2 (1.0-2.8); Alkaline Phosphatase 122 U/L (38-126); Blood Urea Nitrogen 4 mg/dL (7-17); Calcium 9.5 mg/dL (8.4-10.2); Carbon Dioxide 21 mmol/L (22-32); Chloride 106 mmol/L (98-107); Estimated Glomerular Filt Rate > 60 mL/min (>60); Globulin 3.2 g/dL (1.7-4.1); Glucose 92 mg/dL (70-99); HEMOLYSIS < 15 (0-50); Potassium 3.9 mmol/L (3.4-5.1); Sodium 136 mmol/L (137-145); Total Protein 7.0 g/dL (6.3-8.2); Uric Acid 3.8 mg/dL (2.5-6.2)
[2025-06-18 13:27] LABS: Protein (Total) Urine Random 12 mg/dL (0-12); Protein Creatinine Ratio Urine 0.28 GRAM/24H
[2025-06-18] MEDS: LACTATED RINGERS 1,000 ML 1000 ML IV (14:00)
== END 2025-06-18 14:01 | disposition home or self-care (01) ==
PROVIDERS: Admitting Provider Student in an Organized Health Care Education/Training Program; PCP Student in an Organized Health Care Education/Training Program; Referring Provider Student in an Organized Health Care Education/Training Program; Visit Provider Student in an Organized Health Care Education/Training Program
DX: O36.8130 Decreased fetal movements, third trimester, not applicable or unspecified (principal); O26.893 Other specified pregnancy related conditions, third trimester; H53.8 Other visual disturbances; Z3A.36 36 weeks gestation of pregnancy
CPT/HCPCS: 36415; 59025; 59050; 80053; 84550; 85025; 96360; G0378; G0379; J7120